=== PATIENT | female | born 2000 | race Caucasian/White ===

== ENCOUNTER 2018-08-16 04:37 | Inpatient (IN) | payer OTHER ==
[2018-08-15 12:24] LABS: ABSOLUTE LYMPHOCYTES (AUTO) 1.7 10^3/uL (0.5-4.7); ABSOLUTE MONOCYTES (AUTO) 0.6 10^3/uL (0.1-1.4); ABSOLUTE NEUT (AUTO) 8.1 10^3/uL (1.7-8.2); BASOPHILS % (AUTO) 0.3 % (0-2); EOSINOPHILS % (AUTO) 0.1 % (0-6); HEMATOCRIT 33.1 % (36.0-47.0); LYMPHOCYTES % (AUTO) 16.3 % (13-45); MEAN CORPUSCULAR HEMOGLOBIN 28.6 pg (27.0-33.4); MEAN CORPUSCULAR HGB CONC 33.2 g/dL (32.0-36.0); MEAN CORPUSCULAR VOLUME 86 fl (80-97); MONOCYTES % (AUTO) 5.4 % (3-13); PLATELET COUNT 320 10^3/uL (150-450); RED BLOOD COUNT 3.83 10^6/uL (3.72-5.28); RED CELL DISTRIBUTION WIDTH 15.8 % (11.5-14.0); SEGMENTED NEUTROPHILS % (AUTO) 77.9 % (42-78); TOTAL CELLS COUNTED % (AUTO) 100 %; WHITE BLOOD COUNT 10.4 10^3/uL (4.0-10.5)
[2018-08-15 12:30] LABS: APPEARANCE,URINE SLIGHTLY-CLOUDY; BILIRUBIN,URINE NEGATIVE (NEGATIVE); COLOR,URINE YELLOW; GLUCOSE, URINE NEGATIVE (NEGATIVE); KETONES,URINE NEGATIVE (NEGATIVE); LEUKOCYTE ESTERASE,URINE LARGE (NEGATIVE); NITRITE,URINE NEGATIVE (NEGATIVE); PROTEIN,URINE NEGATIVE (NEGATIVE); URINE SPECIFIC GRAVITY 1.023; UROBILINOGEN,URINE NEGATIVE mg/dL (<2.0)
[2018-08-15 12:51] LABS: URINE AMPHETAMINES SCREEN NEGATIVE; URINE BARBITURATES SCREEN NEGATIVE; URINE BENZODIAZEPINES SCREEN NEGATIVE; URINE COCAINE SCREEN NEGATIVE; URINE MARIJUANA (THC) SCREEN NEGATIVE; URINE METHADONE SCREEN NEGATIVE; URINE PHENCYCLIDINE SCREEN NEGATIVE
[2018-08-16] MEDS ORDERED: RINGERS SOLUTION,LACTATED 2,000 ML IV PRN (05:00)
[2018-08-16] MEDS ORDERED: LIDOCAINE 0.5% INJ-PF (5 MG/ML) 50 ML SDV SUBCUT PRN (05:00)
[2018-08-16] MEDS ORDERED: CEFAZOLIN 1 GM/D5W RTU 1 GM/50 ML RTUPB IV PRN (05:00)
[2018-08-16] MEDS ORDERED: LACTATED RINGERS 1000 ML IV PRN (05:00)
[2018-08-16] MEDS ORDERED: KETAMINE HCL INJ 500 MG/10 ML VIAL ONE (06:59)
[2018-08-16] MEDS ORDERED: FENTANYL CITRATE INJ/PF 100 MCG/2 ML AMPUL ONE (07:11)
[2018-08-16] MEDS ORDERED: PROPOFOL INJ 200 MG/20 ML VIAL IV ONE (07:11)
[2018-08-16] MEDS ORDERED: KETOROLAC TROMETHAMINE 60 MG/2 ML SDV ONE (07:11)
[2018-08-16] MEDS ORDERED: DIPHENHYDRAMINE HCL 50 MG/ML VIAL ONE (07:11)
[2018-08-16] MEDS ORDERED: OXYTOCIN 10 UNIT/ML VIAL ONE (07:11)
[2018-08-16] MEDS ORDERED: OXYTOCIN/NORMAL SALINE 20 UNIT/1,000 ML RTUINJ ONE (07:12)
[2018-08-16] MEDS ORDERED: EPHEDRINE SULFATE INJ 50 MG/1 ML AMPULE ONE (07:12)
[2018-08-16] MEDS ORDERED: ONDANSETRON HCL INJ/PF 4 MG/2 ML SDV ONE (07:12)
[2018-08-16] MEDS ORDERED: ACETAMINOPHEN 1,000 MG/100 ML RTUPB IV ONE (07:12)
[2018-08-16] MEDS ORDERED: MIDAZOLAM 2 MG/2 ML INJ ONE (07:12)
[2018-08-16] MEDS ORDERED: MORPHINE SULFATE 10 MG/ML INJ IV PRN (07:28)
[2018-08-16] MEDS ORDERED: FENTANYL CITRATE INJ/PF 100 MCG/2 ML AMPUL IV PRN ×3 (07:28)
[2018-08-16] MEDS ORDERED: MEPERIDINE HCL/PF INJ 25 MG/1 ML DISP.SYRIN IV PRN (07:28)
[2018-08-16] MEDS ORDERED: DIPHENHYDRAMINE HCL 50 MG/ML VIAL IV PRN (07:28)
[2018-08-16] MEDS ORDERED: SIMETHICONE 80 MG TAB.CHEW PO PRN (08:24)
[2018-08-16] MEDS ORDERED: MORPHINE SULFATE 10 MG/ML INJ IM PRN (08:24)
[2018-08-16] MEDS ORDERED: MEASLES,MUMPS&RUBELLA VACC/PF 0.5 ML VIAL SUBCUT PRN ×2 (08:24→14:30)
[2018-08-16] MEDS ORDERED: OXYTOCIN/NORMAL SALINE 20 UNIT/1,000 ML RTUINJ IV PRN (08:24)
[2018-08-16] MEDS ORDERED: ACETAMINOPHEN 1,000 MG/100 ML RTUPB IV PRN (08:24)
[2018-08-16] MEDS ORDERED: PROMETHAZINE HCL INJ 25 MG/1 ML VIAL IV PRN ×2 (08:24→14:30)
[2018-08-16] MEDS ORDERED: OXYCODONE-ACETAMINOPHEN 5-325 MG TABLET PO PRN (08:24)
[2018-08-16] MEDS ORDERED: ACETAMINOPHEN 325 MG TABLET PO PRN (08:24)
[2018-08-16] MEDS ORDERED: DIPH/PERTUSS(ACELL)/TETANUS VAC/PF 0.5 ML SYR (>=10YO) IM PRN ×2 (08:24→14:30)
--- NOTE | 2018-08-16 08:33 | PDOC DELIVERY SUMMARY ---
Delivery Summary - Maternal Hx : II Hx # Term Pregnancies: 1 KIM: 08/18/18 Gestational Age: 39+5 Risk Factors: Previous Ruptured Membranes: AROM Fluids: Clear - Delivery Labor: Not In Labor Presentation: Vertex Heart Rate Monitoring: Done Pre-Operatively, Externally Support Person Present: Yes : Scheduled Number of Vessels (Cord): 3 Nuchal Cord: No - Medications Type of Anesthesia:: Spinal
--- NOTE | 2018-08-16 09:05 | OPERATIVE REPORT E ---
Operative Report NAME: JOSH FRYE : 2000 AGE: 17Y DATE OF SURGERY: 08/16/2018 ROOM: 207 PREOPERATIVE DIAGNOSIS: IUP at term with prior section. POSTOPERATIVE DIAGNOSIS: IUP at term with prior section. OPERATION: Repeat low-transverse with delivery of a viable female, Apgars of 8 and 9, weight 7 pounds 3 ounces. SURGEON: Cristina GANNON M.D. ANESTHESIA: Spinal. ESTIMATED BLOOD LOSS: Less than 100 mL. TISSUE REMOVED: Placenta. PROCEDURE: The patient was placed in a supine position, rolled on her right side, prepped and draped in the usual sterile fashion. A Pfannenstiel incision was made through an existing Pfannenstiel scar. The incision was extended through the subcutaneous tissue with sharp dissection. Fascia were sharply divided. Rectus muscles were bluntly and sharply divided. Parietal peritoneum was entered with sharp dissection. Uterus was nicked in the midline and extended bilaterally. The was then delivered through the uterine-abdominal incision, cord was clamped, and the infant was passed from the table. The placenta was manually removed. The uterus was closed in 2 layers, the first a running stitch of 0 Vicryl and the second a Lembert stitch imbricating the first layer. Hemostasis was noted except for one small area on the right controlled with [id number] suture of 0 Vicryl. The fascia was closed with 0 Vicryl and the skin with subcu absorbable kenya. The adipose tissue was approximated with interrupted 0 Vicryl. The patient's urine remained clear throughout the procedure. She was taken to the recovery room in good condition and the to the nursery in good condition. DICTATING PHYSICIAN: Cristina GANNON M.D. [id number] PHY#: [id number] ID: [id number] JOB#: [id number] ACCT: [id number] cc:Cristina GANNON M.D. >
[2018-08-16] MEDS ORDERED: MISOPROSTOL 0.2 MG TABLET PR ONE (10:04)
[2018-08-16] MEDS ORDERED: MISOPROSTOL 0.2 MG TABLET ONE (10:06)
[2018-08-16] MEDS ORDERED: PROMETHAZINE HCL INJ 25 MG/1 ML VIAL ONE (10:18)
[2018-08-16] MEDS ORDERED: MORPHINE SULFATE 10 MG/ML INJ ONE (10:18)
[2018-08-16] MEDS: PRENATAL VITAMIN W DHA CAPSULE PO SCH (12:57)
[2018-08-16] MEDS: DOCUSATE SODIUM 100 MG CAPSULE PO SCH ×2 (12:57→17:56)
[2018-08-16] MEDS: KETOROLAC TROMETHAMINE INJ/PF 30 MG/1 ML SDV IV SCH (16:31)
[2018-08-17] MEDS: KETOROLAC TROMETHAMINE INJ/PF 30 MG/1 ML SDV IV SCH (00:03)
[2018-08-17 07:09] LABS: HEMATOCRIT 30.3 % (36.0-47.0); HEMOGLOBIN 10.1 g/dL (12.0-15.5); MEAN CORPUSCULAR HEMOGLOBIN 29.2 pg (27.0-33.4); MEAN CORPUSCULAR HGB CONC 33.5 g/dL (32.0-36.0); MEAN CORPUSCULAR VOLUME 87 fl (80-97); PLATELET COUNT 233 10^3/uL (150-450); RED BLOOD COUNT 3.47 10^6/uL (3.72-5.28); RED CELL DISTRIBUTION WIDTH 16.5 % (11.5-14.0); WHITE BLOOD COUNT 10.1 10^3/uL (4.0-10.5)
[2018-08-17] MEDS: IBUPROFEN 800 MG TABLET PO SCH ×3 (08:25→21:00)
[2018-08-17] MEDS: PRENATAL VITAMIN W DHA CAPSULE PO SCH (09:42)
[2018-08-17] MEDS: DOCUSATE SODIUM 100 MG CAPSULE PO SCH ×2 (09:42→17:15)
--- NOTE | 2018-08-17 10:09 | PDOC PROGRESS REPORT ---
Subjective-OB Progress Note for:: 08/17/18 Subjective: Doing well, no c/o, pain under control, passing gas, , pain under control Physical Exam (OB) Vital Signs: Temp Pulse Resp BP Pulse Ox 98.6 F 90 18 123/58 L 97 08/17/18 07:30 08/17/18 07:30 08/17/18 07:30 08/17/18 07:30 08/17/18 07:30 Intake & Output 08/16/18 08/17/18 08/18/18 06:59 06:59 06:59 Intake Total 370 Output Total 1750 Balance -1380 Weight 85.729 kg - PIH/Pre-Eclampsia DTR's: 2 + Clonus: Negative Headache: Absent Epigastric Pain: No Visual Changes: No - Dressing Removed: No Incision: Dressing - Lochia Lochia Amount: Scant < 10 ml Lochia Color: Rubra/Red - Abdomen Description: Tender, Soft Hernia Present: No Fundal Description: Firm, Midline Fundal Height: u/u - u/2 Objective-Diagnostic Laboratory: 08/17/18 06:33 08/17/18 06:33 WBC 10.1 RBC 3.47 L Hgb 10.1 L Hct 30.3 L MCV 87 MCH 29.2 MCHC 33.5 RDW 16.5 H Plt Count 233 Assessment and Plan(PN) - Assessment and Plan (1) Status post repeat low transverse section Is this a current diagnosis for this admission?: Yes - Time Spent with Patient Time with patient: Less than 15 minutes Medications reviewed and adjusted accordingly: Yes - Disposition Anticipated Discharge: Home Within: within 24 hours
--- NOTE | 2018-08-17 10:14 | PDOC DISCHARGE SUMMARY ---
Final Diagnosis Discharge Date: 08/18/18 - Final Diagnosis (1) Status post repeat low transverse section Is this a current diagnosis for this admission?: Yes Discharge Data - Discharge Medication Prescriptions: Oxycodone HCl/Acetaminophen [Percocet 5-325 mg Tablet] 2 tab PO Q4HP PRN #20 tablet PRN Reason: Ibuprofen [Motrin 800 mg Tablet] 800 mg PO Q6A #60 tablet Home Medications: Pnv No.95/Ferrous Fum/Folic AC [ Vitamin Tablet] 1 each PO DAILY 07/16/18 Ibuprofen [Motrin 800 mg Tablet] 800 mg PO Q6A #60 tablet 08/17/18 Oxycodone HCl/Acetaminophen [Percocet 5-325 mg Tablet] 2 tab PO Q4HP PRN #20 tablet 08/17/18 Gestational Age: 39.5 Reason(s) for Admission: Ceasarean Section-Repeat Procedures: NST, Ultrasound Intrapartum Procedure(s): : Low Cervical, Transverse - Data Baby 1 Female Weight: 3.175 kg Home with Mother: Yes Complications: No - Diagnosis Test Laboratory: Temp Pulse Resp BP Pulse Ox 98.6 F 90 18 123/58 L 97 08/17/18 07:30 08/17/18 07:30 08/17/18 07:30 08/17/18 07:30 08/17/18 07:30 08/15/18 08/15/18 08/17/18 11:28 11:35 06:33 RBC 3.83 3.47 L Hgb 11.0 L 10.1 L Hct 33.1 L 30.3 L Urine Opiates Screen NEGATIVE - Discharge information/Instructions Discharge Activity: Activity As Tolerated, No Lifting Over 10 Pounds, No Lifting/Push/Pulling, No tub bath Discharge Diet: As Tolerated, Regular Disposition: HOME, SELF-CARE Follow up with: [facility] in: 1, Weeks
[2018-08-18] MEDS: IBUPROFEN 800 MG TABLET PO SCH ×2 (02:21→09:46)
[2018-08-18 08:44] VITALS: BP 132/79
--- NOTE | 2018-08-18 09:18 | PDOC PROGRESS REPORT ---
Subjective-OB Progress Note for:: 08/18/18 Subjective: Doing well, no c/o, sitting up in chair, ready to go home, pain under control, no pain Physical Exam (OB) Vital Signs: Temp Pulse Resp BP Pulse Ox 97.9 F 81 17 132/79 H 100 08/18/18 08:00 08/18/18 08:00 08/18/18 08:00 08/18/18 08:00 08/18/18 08:00 Intake & Output 08/17/18 08/18/18 08/19/18 06:59 06:59 06:59 Intake Total 370 2425 Output Total 1750 Balance -1380 2425 Baby 1 Female 3.175 kg - PIH/Pre-Eclampsia DTR's: 2 + Clonus: Negative Headache: Absent Epigastric Pain: No Visual Changes: No - Dressing Removed: Yes - medipore dressing/tape,protective pad applied Incision: Draining, Well Approximated - Lochia Lochia Amount: Scant < 10 ml Lochia Color: Serosa/Brown - Abdomen Description: Soft Hernia Present: No Fundal Description: Firm, Midline Fundal Height: u/u - u/2 Objective-Diagnostic Laboratory: 08/17/18 06:33 Assessment and Plan(PN) - Assessment and Plan (1) Status post repeat low transverse section Is this a current diagnosis for this admission?: Yes - Time Spent with Patient Time with patient: Less than 15 minutes Medications reviewed and adjusted accordingly: Yes - Disposition Anticipated Discharge: Home Within: within 24 hours
[2018-08-18] MEDS: PRENATAL VITAMIN W DHA CAPSULE PO SCH (09:47)
[2018-08-18] MEDS: DOCUSATE SODIUM 100 MG CAPSULE PO SCH (09:47)
== END 2018-08-18 13:40 | disposition home or self-care (01) | DRG 788 ==
LOC: 2N 04:37
PROVIDERS: ADMIT Obstetrics & Gynecology Gynecology; ATTEND Obstetrics & Gynecology Gynecology
PROC: 10D00Z1 Extraction of Products of Conception, Low, Open Approach (ICD-10-PCS; principal; 2018-08-16 07:45)
PROC: 3E0234Z Introduction of Serum, Toxoid and Vaccine into Muscle, Percutaneous Approach (ICD-10-PCS; 2018-08-17)
DX: O34.211 Maternal care for low transverse scar from previous cesarean delivery (principal); Z3A.39 39 weeks gestation of pregnancy; Z37.0 Single live birth; Z23 Encounter for immunization
CPT/HCPCS: 1961; 36415; 59025; 80307; 81001; 85025; 85027; 86850; 86900; 86901; 90707; 94799; J0131; J0690; J1200; J1885; J2250; J2270; J2405; J2550; J2590; J2704; J3010; J3490; J7120